=== PATIENT | male | born 1995 | race Caucasian/White ===

== ENCOUNTER 2018-02-23 00:30 | Emergency (ER) | payer OTHER ==
[~2018-02-23] VITALS: Ht 154.9 cm; Wt 160.1 kg
[2018-02-23 01:00] VITALS: Ht 154.9 cm; Wt 160.1 kg
[2018-02-23 02:58] LABS: microscopic required? NO
[2018-02-23 03:12] LABS: CALCIUM 8.4 mg/dL (8.5-10.1); CARBON DIOXIDE 22.4 mmol/L (21-32); CHLORIDE SERUM 107 mmol/L (98-107); GFR1 > 60 mL/min; GLUCOSE SERUM 101 mg/dL (74-106); POTASSIUM SERUM 3.9 mmol/L (3.5-5.1); SODIUM SERUM 140 mmol/L (136-145)
[2018-02-23 03:16] LABS: ALBUMIN 3.6 g/dL (3.4-5.0); ALKALINE PHOSPHATASE 74 U/L (46-116); ALT/SGPT 30 U/L (16-63); AST/SGOT 56 U/L (15-37); BILIRUBIN TOTAL 0.32 mg/dL (0.20-1.00); LIPASE 259 IU/L (73-393); TOTAL PROTEIN, SERUM 8.4 g/dL (6.4-8.2)
[2018-02-23 03:31] LABS: UA SPECIFIC GRAVITY >=1.030 (1.005-1.035); urine erythrocyte NEGATIVE (NEGATIVE)
[2018-02-23 05:06] LABS: BASOPHIL % 0.8 % (0-2); PLATELET COUNT 344 x10^3mcL (130-400); RED CELL DISTRIBUTION WIDTH 13.6 % (11.5-14.5)
[2018-02-23 05:07] VITALS: BP 142/75
== END 2018-02-23 05:36 | disposition home or self-care (01) ==
LOC: ED 00:30
PROVIDERS: Emergency Medicine
DX: K59.00 Constipation, unspecified (principal); J45.909 Unspecified asthma, uncomplicated
CPT/HCPCS: J2270; J2405; J2543; J7030

== ENCOUNTER 2018-03-08 13:16 | Emergency (ER) | payer OTHER ==
[~2018-03-08] VITALS: Ht 180.3 cm; Wt 161.5 kg
[2018-03-08 13:24] VITALS: BP 154/87; Ht 180.3 cm; Wt 161.5 kg
== END 2018-03-08 14:14 | disposition home or self-care (01) ==
LOC: ED 13:16
DX: H60.91 Unspecified otitis externa, right ear (principal)

== ENCOUNTER 2018-06-10 04:49 | Emergency (ER) | payer OTHER ==
[2018-06-10 04:55] VITALS: Ht 182.9 cm
[2018-06-10 06:20] VITALS: BP 130/74
== END 2018-06-10 06:41 | disposition home or self-care (01) ==
LOC: ED 04:49
DX: J45.909 Unspecified asthma, uncomplicated (principal); F17.210 Nicotine dependence, cigarettes, uncomplicated
CPT/HCPCS: Q0092